=== PATIENT | male | born 1965 | race Caucasian/White ===

== ENCOUNTER 2023-01-16 12:24 | Inpatient (IN) | payer OTHER ==
[2023-01-16 13:36] VITALS: BMI 20.3
[2023-01-16] MEDS ORDERED: BISMUTH SUBSALICYLATE 262 MG/15 ML BTL PO PRN (15:19)
[2023-01-16] MEDS ORDERED: NICOTINE POLACRILEX 2 MG GUM BUC PRN (15:19)
[2023-01-16] MEDS ORDERED: guaiFENesin 600 MG TABLET.ER (FP) PO PRN (15:19)
[2023-01-16] MEDS ORDERED: NALOXONE HCL (KLOXXADO) 8 MG SPRAY NS PRN (15:19)
[2023-01-16] MEDS ORDERED: NICOTINE 10 MG CARTRIDGE (INHALER) IH PRN (15:19)
[2023-01-16] MEDS ORDERED: BENZONATATE 200 MG CAPSULE PO PRN (15:19)
[2023-01-16] MEDS ORDERED: MAGNESIUM HYDROX 2400MG/30ML ORAL SUSPENSION 30 ML CUP PO PRN (15:19)
[2023-01-16] MEDS ORDERED: BENZOCAINE/MENTHOL (CHLORASEPTIC ) LOZENGE MM PRN (15:19)
[2023-01-16] MEDS ORDERED: MAG HYDROX/AL HYDROX/SIMETH 30 ML UNIT-DOSE CUP PO PRN (15:19)
[2023-01-16] MEDS ORDERED: P-EPHED 60MG/TRIPROLIDI 2.5MG TABLET PO PRN (15:19)
[2023-01-16] MEDS ORDERED: DICYCLOMINE HCL 10 MG CAPSULE PO PRN (15:19)
[2023-01-16] MEDS ORDERED: POLYETHYLENE GLYCOL (HEALTHYLAX) 3350 17 GM PACKET PO PRN (15:19)
[2023-01-16] MEDS ORDERED: NALOXONE HCL 0.4 MG/ML VIAL IM PRN (15:19)
[2023-01-16] MEDS ORDERED: IBUPROFEN 400 MG TABLET (FP) PO PRN (15:19)
[2023-01-16] MEDS ORDERED: LOPERAMIDE HCL 2 MG CAPSULE PO PRN (15:19)
[2023-01-16] MEDS ORDERED: IBUPROFEN 600 MG TABLET (FP) PO PRN (15:19)
[2023-01-16] MEDS ORDERED: ACETAMINOPHEN 325 MG TABLET (FP) PO PRN (15:19)
[2023-01-16] MEDS: MELATONIN 5 MG TABLETS PO PRN (22:12)
[2023-01-16] MEDS: THIAMINE HCL 100 MG TABLET (FP) PO SCH (22:12)
[2023-01-17] MEDS: ONDANSETRON *ODT* 4 MG TABLET SL PRN ×2 (07:01→14:42)
[2023-01-17] MEDS: PRENATAL VITAMINS W/ FOLIC ACID TABLET (FP) PO SCH (10:33)
[2023-01-17] MEDS ORDERED: diazePAM 5 MG TABLET PO PRN (10:33)
[2023-01-17] MEDS ORDERED: methaDONE HCL 10 MG TABLET PO SCH (10:45)
[2023-01-17] MEDS: diazePAM 5 MG TABLET PO SCH ×3 (11:11→22:39)
[2023-01-17] MEDS ORDERED: TRIMETHOBENZAMIDE HCL 200MG/2ML INJ IM ONE (11:21)
[2023-01-17 12:43] LABS: POTASSIUM 3.8 mmol/L (3.5-5.1)
[2023-01-17 12:45] LABS: HEMATOCRIT 44.8 % (35.4-49); HEMOGLOBIN 15.2 GM/dL (11.7-16.9); MCH 33.7 pg (25.7-33.7); MCHC 33.9 g/dl (32.0-35.9); MEAN CELL VOLUME 99.6 fl (80-96); MEAN PLT VOLUME 8.2 fl (7.5-11.1); PLATELET COUNT 338 10^3/uL (134-434); RBC 4.49 M/mm3 (4.00-5.60); RDW 15.8 % (11.9-15.9); WHITE BLOOD COUNT 12.1 K/mm3 (4.0-10.0)
[2023-01-17 12:49] LABS: CALCIUM 9.9 mg/dL (8.5-10.1)
[2023-01-17 12:51] LABS: ALBUMIN 4.2 g/dl (3.4-5.0); BLOOD UREA NITROGEN 8.2 mg/dL (7-18)
[2023-01-17 12:53] LABS: CREATININE 0.7 mg/dL (0.55-1.3)
[2023-01-17 12:54] LABS: BILIRUBIN,TOTAL 0.8 mg/dL (0.2-1)
[2023-01-17 12:55] LABS: TOT PROT 7.3 g/dl (6.4-8.2)
[2023-01-17] MEDS: methaDONE 40 MG, methaDONE 10 MG PO SCH (14:41)
[2023-01-17] MEDS: cloNIDine HCL 0.1 MG TABLET PO PRN (21:01)
[2023-01-17] MEDS: THIAMINE HCL 100 MG TABLET (FP) PO SCH (22:39)
[2023-01-18] MEDS: diazePAM 5 MG TABLET PO SCH ×4 (05:46→22:51)
[2023-01-18] MEDS: methaDONE 40 MG, methaDONE 10 MG PO SCH ×2 (05:47→07:00)
[2023-01-18] MEDS: PRENATAL VITAMINS W/ FOLIC ACID TABLET (FP) PO SCH (10:42)
[2023-01-18] MEDS: cloNIDine HCL 0.1 MG TABLET PO PRN (22:51)
[2023-01-18] MEDS: MELATONIN 5 MG TABLETS PO PRN (22:51)
[2023-01-18] MEDS: THIAMINE HCL 100 MG TABLET (FP) PO SCH (22:52)
[2023-01-19] MEDS: diazePAM 5 MG TABLET PO SCH ×3 (06:02→23:20)
[2023-01-19] MEDS: methaDONE 40 MG, methaDONE 10 MG PO SCH (06:09)
[2023-01-19] MEDS: PRENATAL VITAMINS W/ FOLIC ACID TABLET (FP) PO SCH (09:46)
[2023-01-19] MEDS: ONDANSETRON *ODT* 4 MG TABLET SL PRN ×2 (13:41→22:54)
[2023-01-19 15:52] LABS: HIV INTERPRETATION NEGATIVE (NEGATIVE)
[2023-01-19] MEDS: THIAMINE HCL 100 MG TABLET (FP) PO SCH (23:20)
[2023-01-19] MEDS: MELATONIN 5 MG TABLETS PO PRN (23:20)
[2023-01-20] MEDS: diazePAM 5 MG TABLET PO SCH ×2 (05:55→17:34)
[2023-01-20] MEDS: methaDONE 40 MG, methaDONE 10 MG PO SCH (05:56)
[2023-01-20] MEDS: PRENATAL VITAMINS W/ FOLIC ACID TABLET (FP) PO SCH (09:24)
[2023-01-20 11:17] LABS: HEMOGLOBIN 16.5 GM/dL (11.7-16.9); MCH 33.1 pg (25.7-33.7); MCHC 33.6 g/dl (32.0-35.9); MEAN CELL VOLUME 98.5 fl (80-96); MEAN PLT VOLUME 8.3 fl (7.5-11.1); PLATELET COUNT 330 10^3/uL (134-434); RBC 4.97 M/mm3 (4.00-5.60); RDW 15.3 % (11.9-15.9); WHITE BLOOD COUNT 10.6 K/mm3 (4.0-10.0)
[2023-01-20] MEDS: MELATONIN 5 MG TABLETS PO PRN (22:10)
[2023-01-20] MEDS: THIAMINE HCL 100 MG TABLET (FP) PO SCH (22:10)
[2023-01-21] MEDS: methaDONE 40 MG, methaDONE 10 MG PO SCH (05:30)
[2023-01-21] MEDS ORDERED: diazePAM 5 MG TABLET PO ONE (06:00)
[2023-01-21] MEDS: PRENATAL VITAMINS W/ FOLIC ACID TABLET (FP) PO SCH (09:31)
[2023-01-21] MEDS: ONDANSETRON *ODT* 4 MG TABLET SL PRN (09:34)
[2023-01-21 14:11] VITALS: BP 92/63; PULSE 98; RESP 16; TEMP 98.8
== END 2023-01-21 03:16 | disposition home or self-care (01) | DRG 773 ==
LOC: YASAS 12:24 → Y3N 16:13
PROVIDERS: ADMIT Allergy & Immunology; ATTEND Surgery
PROC: HZ2ZZZZ Detoxification Services for Substance Abuse Treatment (ICD-10-PCS; principal; 2023-01-16)
DX: F10.230 Alcohol dependence with withdrawal, uncomplicated (principal); F11.20 Opioid dependence, uncomplicated; F17.210 Nicotine dependence, cigarettes, uncomplicated; Z59.00 Homelessness unspecified
CPT/HCPCS: 36415; 80053; 85027; 86780; 87389; 87635; 87811; Q0162